=== PATIENT | female | born 1990 | race Caucasian/White ===

== ENCOUNTER 2017-04-16 18:18 | Emergency (ER) | payer MEDICAID ==
[2017-04-16] MEDS ORDERED: IBUPROFEN 200 MG TABLET ONE (19:31)
[2017-04-16] MEDS ORDERED: OMNIPAQUE 350 MG/ML, 75ML BOTTLE ONE (21:30)
[2017-04-19 11:22] LABS: BLOOD UREA NITROGEN 10 mg/dL (7-18)
[2017-04-19 12:02] LABS: BLOOD UREA NITROGEN 10 mg/dL (7-18)
== END 2017-04-16 23:10 | disposition home or self-care (01) ==
LOC: ED 18:18
DX: R51 Headache (principal); K11.21 Acute sialoadenitis
CPT/HCPCS: 36415; 70487; 80048; 85025; 99285; Q9967; 82040